=== PATIENT | male | born 1960 | race African-American/Black ===

== ENCOUNTER 2023-04-06 13:31 | Inpatient (IN) | payer OTHER ==
[~2023-04-06] VITALS: Ht 172.7 cm; Wt 140.2 kg
[2023-04-06 13:58] LABS: BASOPHILS # (AUTO) 0.1 K/uL (0.0-0.2); BASOPHILS % (AUTO) 0.9 % (0.0-2.0); EOSINOPHILS # (AUTO) 0.1 K/uL (0.0-0.7); EOSINOPHILS % (AUTO) 2.2 % (0.0-6.0); HEMATOCRIT 44 % (39-51); HEMOGLOBIN 14.3 g/dL (13.5-17.5); LYMPHOCYTES % (AUTO) 32.3 % (20.0-44.0); MEAN CORPUSCULAR HEMOGLOBIN 27 PG (26.0-33.0); MEAN CORPUSCULAR HGB CONC 33 g/dl (31.0-36.0); MEAN CORPUSCULAR VOLUME 83 fL (80-96); MONOCYTES # (AUTO) 0.4 K/uL (0.1-1.30); NEUTROPHILS # (AUTO) 3.7 K/uL (1.8-8.9); NEUTROPHILS % (AUTO) 57.6 % (43.0-81.0); PLATELET COUNT (AUTO) 142 K/uL (150-450); RED CELL DISTRIBUTION WIDTH 15.1 % (11.5-15.0); WHITE BLOOD COUNT (AUTO) 6.3 K/uL (4.3-11.0)
[2023-04-06 14:07] LABS: CALCIUM, SERUM 9.2 mg/dL (8.5-10.1); CARBON DIOXIDE 26 mmol/L (21-32); CHLORIDE 99 mmol/L (98-107); CREATININE 0.9 mg/dL (0.6-1.3); GLUCOSE 270 mg/dL (74-106); SODIUM SERUM 134 mmol/L (136-145); UREA NITROGEN, BLOOD 14 mg/dL (7-18)
[2023-04-06 14:18] LABS: ALANINE AMINOTRANSFERASE 22 U/L (12-78); ALBUMIN 3.8 g/dL (3.4-5.0); ALKALINE PHOSPHATASE 146 U/L (46-116); ASPARTATE AMINOTRANSFERASE 10 U/L (15-37); BILIRUBIN,DIRECT 0.1 mg/dL (0.0-0.2); BILIRUBIN,TOTAL 0.5 mg/dL (0.2-1.0); NT-PRO BNP 14 pg/mL (0-125); TOTAL PROTEIN, SERUM 8.1 g/dL (6.4-8.2)
[2023-04-06] MEDS ORDERED: ASPIRIN 81 MG TAB.CHEW ONE (14:44)
[2023-04-06] MEDS ORDERED: HALO5TAB8 PO (14:46)
[2023-04-06] MEDS ORDERED: APIX5TAB PO (14:46)
[2023-04-06] MEDS ORDERED: SENN-261 PO (14:46)
[2023-04-06] MEDS ORDERED: MAGN400O6 PO (14:46)
[2023-04-06] MEDS ORDERED: TRAM50TA2 PO (14:46)
[2023-04-06] MEDS ORDERED: BISA10SU11 RC (14:46)
[2023-04-06] MEDS ORDERED: TRAZ-182 PO (14:46)
[2023-04-06] MEDS ORDERED: IBUP-1955 PO (14:46)
[2023-04-06] MEDS ORDERED: DIPH50CA4 PO (14:46)
[2023-04-06] MEDS ORDERED: DILT60TA35 PO (14:46)
[2023-04-06] MEDS ORDERED: ACET-868 PO (14:46)
[2023-04-06] MEDS ORDERED: diphenhydrAMINE HCL 50 MG CAPSULE PO PRN (15:00)
[2023-04-06] MEDS ORDERED: IBUPROFEN 600 MG TABLET PO PRN (15:00)
[2023-04-06] MEDS ORDERED: MORPHINE SULFATE INJ 2 MG/ML DISP.SYRIN IV PRN (15:00)
[2023-04-06] MEDS ORDERED: SENNOSIDES 8.6 MG TABLET PO PRN (15:00)
[2023-04-06] MEDS ORDERED: MAGNESIUM HYDROXIDE 30 ML UDC PO PRN ×2 (15:00)
[2023-04-06] MEDS ORDERED: Z GUARD REMEDY 4 OZ OINT TP PRN (15:00)
[2023-04-06] MEDS ORDERED: TRAMADOL HCL 50 MG TABLET PO PRN (15:00)
[2023-04-06] MEDS ORDERED: MAG HYDROX/AL HYDROX/SIMETH 30 ML UDC PO PRN (15:00)
[2023-04-06] MEDS ORDERED: ZOLPIDEM TARTRATE 5 MG TABLET PO PRN (15:00)
[2023-04-06] MEDS ORDERED: ASPIRIN 81 MG TAB.CHEW PO ONE (15:00)
[2023-04-06] MEDS ORDERED: BISACODYL SUPP (10 MG) 10 MG/SUPP.RECT SUPP.RECT RC PRN (15:00)
[2023-04-06] MEDS ORDERED: ONDANSETRON HCL/PF 4 MG/2 ML VIAL IVP PRN (15:00)
[2023-04-06] MEDS ORDERED: ACETAMINOPHEN 325 MG TABLET PO PRN ×2 (15:00)
[2023-04-06] MEDS ORDERED: NITROGLYCERIN 0.4 MG/TAB BOTTLE SL ONE (15:30)
[2023-04-06] MEDS: DILTIAZEM HCL 30 MG TABLET PO SCH ×2 (17:28→21:45)
[2023-04-06] MEDS: APIXABAN 5 MG TABLET PO SCH (17:38)
[2023-04-06] MEDS ORDERED: DEXTROSE 50%-WATER 50 ML DISP.SYRIN IV PRN (19:30)
[2023-04-06 20:00] VITALS: BP 138/82; TEMP 98.6; O2SAT 96
[2023-04-06 20:41] VITALS: BP 138/82; TEMP 98.6; O2SAT 96
[2023-04-06 20:44] VITALS: BP 134/70; TEMP 97.7; O2SAT 97
[2023-04-06] MEDS: TRAZODONE 50 MG TABLET PO SCH (21:45)
[2023-04-06 23:22] LABS: THYROID STIMULATING HORMONE 0.667 uIU/mL (0.358-3.74)
[2023-04-06] MEDS: BLOOD SUGAR DIAGNOSTIC 1 EACH STRIP IN SCH (23:32)
[2023-04-06] MEDS: INSULIN REGULAR, HUMAN 100 UNIT/ML 3 ML VIAL SQ PRN (23:33)
[2023-04-07] VITALS: BP 120/52; TEMP 98; O2SAT 96
[2023-04-07 04:00] VITALS: BP 120/55; TEMP 98.2; O2SAT 97
[2023-04-07] MEDS: BLOOD SUGAR DIAGNOSTIC 1 EACH STRIP IN SCH ×3 (06:00→17:29)
[2023-04-07 08:00] VITALS: BP 205/112; TEMP 98.6; O2SAT 98
[2023-04-07] MEDS: ASPIRIN 325 MG TABLET PO SCH (08:32)
[2023-04-07] MEDS: HALOPERIDOL 5 MG TABLET PO SCH (08:32)
[2023-04-07] MEDS: APIXABAN 5 MG TABLET PO SCH ×2 (08:33→17:28)
[2023-04-07] MEDS ORDERED: ATORVASTATIN 10 MG TABLET PO SCH (09:00)
[2023-04-07 12:00] VITALS: BP 205/112; TEMP 98.6; O2SAT 98
[2023-04-07] MEDS: METOPROLOL TARTRATE 50 MG TABLET PO SCH ×2 (12:22→17:27)
[2023-04-07 16:00] VITALS: BP 142/89; TEMP 98.6; O2SAT 98
[2023-04-07] MEDS: TRAZODONE 50 MG TABLET PO SCH (22:00)
[2023-04-08 04:00] VITALS: BP 138/81; TEMP 98; O2SAT 100
[2023-04-08] MEDS: INSULIN REGULAR, HUMAN 100 UNIT/ML 3 ML VIAL SQ PRN (05:39)
[2023-04-08] MEDS: BLOOD SUGAR DIAGNOSTIC 1 EACH STRIP IN SCH ×4 (05:40→18:00)
[2023-04-08] MEDS: METOPROLOL TARTRATE 50 MG TABLET PO SCH ×4 (06:29→18:00)
[2023-04-08] MEDS: ASPIRIN 325 MG TABLET PO SCH (08:40)
[2023-04-08] MEDS: HALOPERIDOL 5 MG TABLET PO SCH ×2 (08:40→08:52)
[2023-04-08] MEDS: ATORVASTATIN 10 MG TABLET PO SCH (08:41)
[2023-04-08] MEDS: APIXABAN 5 MG TABLET PO SCH ×2 (08:42→17:31)
[2023-04-08 20:00] VITALS: BP 136/26; TEMP 98.4; O2SAT 97
[2023-04-08] MEDS: TRAZODONE 50 MG TABLET PO SCH ×2 (21:42→21:45)
[2023-04-09] VITALS: BP 136/76; TEMP 98.4; O2SAT 97
[2023-04-09] MEDS: METOPROLOL TARTRATE 50 MG TABLET PO SCH ×5 (00:15→17:31)
[2023-04-09 04:00] VITALS: BP 136/76; TEMP 98.4; O2SAT 97
[2023-04-09] MEDS: BLOOD SUGAR DIAGNOSTIC 1 EACH STRIP IN SCH ×4 (06:00→17:31)
[2023-04-09] MEDS: APIXABAN 5 MG TABLET PO SCH ×2 (08:46→17:00)
[2023-04-09] MEDS: ASPIRIN 325 MG TABLET PO SCH (08:46)
[2023-04-09] MEDS: HALOPERIDOL 5 MG TABLET PO SCH (08:46)
[2023-04-09] MEDS: ATORVASTATIN 10 MG TABLET PO SCH (08:47)
[2023-04-09] MEDS: TRAZODONE 50 MG TABLET PO SCH (22:32)
[2023-04-10] MEDS: INSULIN REGULAR, HUMAN 100 UNIT/ML 3 ML VIAL SQ PRN ×2 (02:07→06:06)
[2023-04-10] MEDS: METOPROLOL TARTRATE 50 MG TABLET PO SCH ×4 (06:00→17:33)
[2023-04-10] MEDS: BLOOD SUGAR DIAGNOSTIC 1 EACH STRIP IN SCH ×4 (06:00→17:33)
[2023-04-10] MEDS: APIXABAN 5 MG TABLET PO SCH ×2 (08:16→16:37)
[2023-04-10] MEDS: ATORVASTATIN 10 MG TABLET PO SCH (08:16)
[2023-04-10] MEDS: ASPIRIN 325 MG TABLET PO SCH (08:16)
[2023-04-10] MEDS: HALOPERIDOL 5 MG TABLET PO SCH (08:16)
[2023-04-10] MEDS: TRAZODONE 50 MG TABLET PO SCH (21:38)
[2023-04-11] MEDS: INSULIN REGULAR, HUMAN 100 UNIT/ML 3 ML VIAL SQ PRN (05:14)
[2023-04-11] MEDS: METOPROLOL TARTRATE 50 MG TABLET PO SCH ×5 (05:14→23:38)
[2023-04-11] MEDS: BLOOD SUGAR DIAGNOSTIC 1 EACH STRIP IN SCH ×5 (05:14→23:38)
[2023-04-11] MEDS: ATORVASTATIN 10 MG TABLET PO SCH (08:38)
[2023-04-11] MEDS: APIXABAN 5 MG TABLET PO SCH ×2 (08:42→16:08)
[2023-04-11] MEDS: ASPIRIN 325 MG TABLET PO SCH (08:43)
[2023-04-11] MEDS: TRAZODONE 50 MG TABLET PO SCH (21:12)
[2023-04-12] MEDS: BLOOD SUGAR DIAGNOSTIC 1 EACH STRIP IN SCH ×2 (05:04→11:24)
[2023-04-12] MEDS: METOPROLOL TARTRATE 50 MG TABLET PO SCH ×2 (05:04→11:24)
[2023-04-12] MEDS: ASPIRIN 325 MG TABLET PO SCH (08:36)
[2023-04-12] MEDS: APIXABAN 5 MG TABLET PO SCH (08:36)
[2023-04-12] MEDS: ATORVASTATIN 10 MG TABLET PO SCH (08:37)
[2023-04-12 11:24] VITALS: BP 136/76
== END 2023-04-12 15:45 | DRG 198 ==
LOC: ER 13:35 → TELE-TD 15:56 → TELE1 16:00 → MEDSG1 04-09 11:01
PROVIDERS: ADMIT Internal Medicine; ATTEND Internal Medicine
DX: I25.119 Atherosclerotic heart disease of native coronary artery with unspecified angina pectoris (principal); D69.6 Thrombocytopenia, unspecified; I27.20 Pulmonary hypertension, unspecified; E66.01 Morbid (severe) obesity due to excess calories; E11.65 Type 2 diabetes mellitus with hyperglycemia; I08.0 Rheumatic disorders of both mitral and aortic valves; Z68.42 Body mass index [BMI] 45.0-49.9, adult; Z71.3 Dietary counseling and surveillance; I25.2 Old myocardial infarction; F20.9 Schizophrenia, unspecified; Z88.0 Allergy status to penicillin; Z79.01 Long term (current) use of anticoagulants; I10 Essential (primary) hypertension; Z86.79 Personal history of other diseases of the circulatory system; F32.A Depression, unspecified; F41.9 Anxiety disorder, unspecified; E78.5 Hyperlipidemia, unspecified; G47.33 Obstructive sleep apnea (adult) (pediatric); I48.91 Unspecified atrial fibrillation; Z59.89 Other problems related to housing and economic circumstances
CPT/HCPCS: 36415; 71045-TC; 80048-TC; 80061-TC; 80076-TC; 82962-TC; 83880; 84439-TC; 84443-TC; 84484-TC; 85025-TC; 93307-TC; G0378; J1815